=== PATIENT | male | born 1935 | race Caucasian/White ===

== ENCOUNTER 2017-12-07 01:34 | Emergency (ER) | payer OTHER, MEDICARE ==
[~2017-12-07] VITALS: Ht 175.3 cm; Wt 95.3 kg
--- NOTE | 2017-12-07 01:55 | ED NECK/BACK PAIN COMPLAINT ---
History of Present Illness General Chief Complaint: Low Back Pain/Injury Stated Complaint: INTENSE BACK PAIN Source: patient Exam Limitations: no limitations Vital Signs & Intake/Output Vital Signs & Intake/Output Vital Signs Date Time Temp Pulse Resp B/P B/P Pulse O2 O2 Flow FiO2 Mean Ox Delivery Rate 12/07 0138 97.4 68 20 146/97 96 Room Air Allergies Coded Allergies: MDX - Pneumococcal Vaccine (PNEUMOCOCCAL VACCINE) (Intermediate, SWELLING ) Reconcile Medications Cyclobenzaprine HCl 10 MG TABLET 1 TAB PO 4 TIMES/DAY PRN MUSCLE SPASM Tylenol With Codeine (Tylenol With Codeine #3 Tablet) 300 MG-30 MG TABLET 1-2 TAB PO TID PRN pain ten...[id number] Triage Note: PT BIBA FROM HOME C/O LOWER BACK PAIN X 2 DAYS. DENIES INJURY, FALL, HEAVY EXERTION. DENIES N/V/URINARY S/SX. PT HAS BEEN TAKING TYLENOL WITHOUT RELIEF. STATES "I CAN USUALLY GET COMFORTABLE, BUT TONIGHT I COULDNT." PT AMBULATED OFF EMS STRETCHER TO ER STRETCHER WITH STEADY GAIT. Triage Nurses Notes Reviewed? yes Onset: Abrupt Duration: day(s): Timing: recent history Quality/Severity: moderate Location: lumbar spine Radiation: none Context: "I was at home and it really began to hurt." Method of Injury: unknown Loss of Consciousness: no loss of consciousness Modifying Factors: movement, rest Associated Symptoms: muscle spasm HPI: 82 yo gentleman h/o htn and "bleeding ulcers" presents with lumbar back pain x 2-3 days. He notes no injury. He notes it hurts with minimal movement. "I keep still and it only hurts a little, and then when I move it just hurts so much." No numbness, tingling, lower extremity weakness. He is otherwise well. Past History Travel History Traveled to [place] past 21 day No Medical History Any Pertinent Medical History? see below for history Neurological: NONE EENT: NONE Cardiovascular: hypertension Respiratory: NONE Gastrointestinal: ULCERS Hepatic: NONE Renal: NONE Musculoskeletal: NONE Psychiatric: NONE Endocrine: NONE Blood Disorders: NONE Cancer(s): NONE CHILD CARE AIDE/Reproductive: NONE History of MRSA: No History of VRE: No History of CDIFF: No Pneumonia Vaccine: 10/11/13 Influenza Vaccine: 08/09/13 Surgical History Surgical History: none Psychosocial History Who do you live with Patient/Self What is your primary language Albanian Tobacco Use: Quit >30 days ago ETOH Use: heavy use Illicit Drug Use: denies illicit drug use Family History Family History, If Any: Relation not specified for: FH: hypertension Hx Contributory? No Review of Systems Review of Systems Constitutional: Reports: no symptoms. Eyes: Reports: no symptoms. Ears, Nose, Throat, Mouth: Reports: no symptoms. Respiratory: Reports: no symptoms. Cardiovascular: Reports: no symptoms. Gastrointestinal/Abdominal: Reports: no symptoms. Musculoskeletal: Reports: no symptoms. Skin: Reports: no symptoms. Neurological/Psychological: Reports: no symptoms. All Other Systems: Reviewed and Negative Physical Exam Physical Exam General Appearance: well developed/nourished, mild distress Head: atraumatic Eyes: Bilateral: PERRL, EOMI. Ears, Nose, Throat, Mouth: hearing grossly normal Neck: normal inspection, supple, full range of motion, normal alignment Respiratory: normal breath sounds Cardiovascular: regular rate/rhythm Gastrointestinal: soft, non-tender Back: normal inspection, muscle spasm, no vertebral tenderness, muscle spasm and tenderness in lower lumbar spine. no focal bony tenderness. Extremities: normal range of motion Neurologic/Psych: awake, alert, oriented x 3, normal mood/affect Skin: intact, normal color, warm/dry Comments: negative straight leg raise bilaterally light touch, strength, dtr's are symmetrical and normal bilaterally. Core Measures CVA/TIA Diagnosis: No Progress Differential Diagnosis: herniated disc, myofascial strain, sciatica, T/L spine injury Plan of Care: Current Medications Sig/Jay Jay Start time Last Medication Dose Stop Time Status Admin Hydromorphone HCl 1 MG ONCE ONE 12/07 344 UNVr 12/07 (Dilaudid) 12/07 345 0343 Diagnostic Imaging: Viewed by Me: CT Scan. Discussed w/RAD: CT Scan. Radiology Impression: PATIENT: DEYSI DELACRUZ PRESENT AGE: 82 PATIENT ACCOUNT NO: [id number] : 34 LOCATION: [facility] ORDERING PHYSICIAN: Timo Frazier MD SERVICE DATE: 12/07/17 EXAM TYPE: CAT - CT LUMB SPINE WO IV CONTRAST EXAMINATION: CT LUMBAR SPINE WITHOUT CONTRAST CLINICAL INFORMATION: Severe pain COMPARISON: None TECHNIQUE: Helical non-contrast CT images were obtained through the lumbar spine and 1.25 and 2.5 mm axial reconstructions were reviewed along with sagittal and coronal MPRs. DLP: 1419.69 mGy-cm FINDINGS: There is anatomic alignment of the lumbar vertebral bodies and posterior elements. Vertebral body heights are maintained. There is mild disc space narrowing at L5-S1 with endplate irregularity. The remainder of the intervertebral disc spaces are relatively well-preserved. Multilevel endplate osteophytes are present throughout the spine, and there is multilevel facet arthropathy. No acute fracture is seen. The sacroiliac joints are maintained. Moderate central stenosis is suspected at L4-L5, as well as a possible right foraminal stenosis. Mild central stenoses are suspected at L2-L3 and L3-L4. There is pleural calcification in the basilar right hemithorax. There is a partially visualized low-density right renal lesion favored to represent a cyst. There is atherosclerotic calcification along the aorta. IMPRESSION: Multilevel degenerative changes of the lumbar spine, with no acute osseous findings identified. Suspect moderate central stenosis at L4-L5 and possible right foraminal stenosis; this may be better assessed with MRI. DICTATED BY: J Carlos Ramirez MD DATE/TIME DICTATED:12/07/17322 SURVEILLANCE MONITOR:TIARA DATE/TIME TRANSCRIBED:12/07/17322 CONFIDENTIAL, DO NOT COPY WITHOUT APPROPRIATE AUTHORIZATION. <Electronically signed in Other Vendor System> SIGNED BY: J Carols Ramirez MD 12/07/17 0336 Departure Departure Disposition: HOME OR SELF CARE Condition: Stable Clinical Impression Primary Impression: Back pain Secondary Impressions: DJD (degenerative joint disease), Spinal stenosis Referrals: Merry GIRALDO,Portillo Gifford (PCP/Family) Departure Forms: Customer Survey General Discharge Information Prescriptions: Current Visit Scripts Tylenol With Codeine (Tylenol With Codeine #3 Tablet) 1-2 TAB PO TID PRN pain #10 TAB ten...[id number] Cyclobenzaprine HCl 1 TAB PO 4 TIMES/DAY PRN MUSCLE SPASM #30 TAB Ref 1 Comments 12/07/17, 4:03am... pt is improved after supportive medications... safe for discharge... close follow up with ortho, pmd for referral to PT advised.
[2017-12-07] MEDS ORDERED: CYCLOBENZAPRINE10 M1 PO (02:10)
[2017-12-07] MEDS ORDERED: TYLENOL WITH C1 EACH PO (02:10)
--- NOTE | 2017-12-07 03:36 | CT SCAN REPORT ---
EXAMINATION: CT LUMBAR SPINE WITHOUT CONTRAST CLINICAL INFORMATION: Severe pain COMPARISON: None TECHNIQUE: Helical non-contrast CT images were obtained through the lumbar spine and 1.25 and 2.5 mm axial reconstructions were reviewed along with sagittal and coronal MPRs. DLP: 1419.69 mGy-cm FINDINGS: There is anatomic alignment of the lumbar vertebral bodies and posterior elements. Vertebral body heights are maintained. There is mild disc space narrowing at L5-S1 with endplate irregularity. The remainder of the intervertebral disc spaces are relatively well-preserved. Multilevel endplate osteophytes are present throughout the spine, and there is multilevel facet arthropathy. No acute fracture is seen. The sacroiliac joints are maintained. Moderate central stenosis is suspected at L4-L5, as well as a possible right foraminal stenosis. Mild central stenoses are suspected at L2-L3 and L3-L4. There is pleural calcification in the basilar right hemithorax. There is a partially visualized low-density right renal lesion favored to represent a cyst. There is atherosclerotic calcification along the aorta. IMPRESSION: Multilevel degenerative changes of the lumbar spine, with no acute osseous findings identified. Suspect moderate central stenosis at L4-L5 and possible right foraminal stenosis; this may be better assessed with MRI.
[2017-12-07] MEDS ORDERED: LIDODERM1 EACH TOP (04:05)
[2017-12-07 04:31] VITALS: BP 107/62
== END 2017-12-07 04:32 ==
LOC: ERH 01:34
DX: M54.5 Low back pain (principal); M51.36 Other intervertebral disc degeneration, lumbar region; M48.061 Spinal stenosis, lumbar region without neurogenic claudication
CPT/HCPCS: 96372